=== PATIENT | female | born 1965 | race Caucasian/White ===

== ENCOUNTER 2016-09-12 12:21 | Emergency (ER) | payer OTHER ==
[~2016-09-12] VITALS: Wt 77.5 kg
[~2016-09-12 12:21] MED LIST: CETI10CA PO; CIPR500T4 PO; GLYB5TAB3 PO; HYDR-3498 PO; HYDR-762 PO; IBUP800T25 PO; METF1000 PO; METR500T PO; NAPR-260 PO; OMEP40CA6 PO; ONDA4TAB35 PO
--- NOTE | 2016-09-12 13:49 | ERD ---
ER Documentation Chief Complaint Date/Time DATE: 09/12/16 TIME: 13:47 Chief Complaint LEFT FACE/NOSE/ARM/HIP PAIN S/P FALL TODAY NO LOC HPI 51-year-old female comes in status post slip and fall at [facility] today at around 11:45 AM complaining of facial pain, right wrist pain, and left knee pain. Patient's pain is in the left side of her face in the cheek and the jaw, she states that she fell on the ground on this area. Pain is achy, moderate, worse when she moves her head. There was no loss of consciousness, vomiting. She also is here for dorsal wrist pain on the right side, she states that she may have to try to catch herself but is not sure. She also complains of bruising on the left knee and pain as well. ROS All systems reviewed and are negative except as per history of present illness. Medications Home Meds Active Scripts Ibuprofen* (Motrin*) 600 Mg Tab, 600 MG PO Q6, #30 TAB Prov:GIOVANNI SCHWAB PA-C 09/12/16 Cetirizine Hcl* (Zyrtec*) 10 Mg Capsule, 10 MG PO DAILY, #14 TAB.CHEW Prov:BRIANNE DU PA-C 01/17/16 Ondansetron Hcl* (Zofran* ODT) 4 mg -ODT Tab.disper, 4 MG PO Q6 Y for NAUSEA AND /OR VOMITING, #10 TAB Prov:MAGALY BLANCAS MD 09/15/15 Hydrocodone Bit-Acetaminophen* (Paulina*) 10-325 Mg Tablet, 1 TAB PO Q6 Y for PAIN , #7 TAB Prov:MAGALY BLANCAS MD 09/15/15 Metronidazole* (Flagyl*) 500 Mg Tablet, 500 MG PO TID for 10 Days, TAB Prov:MAGALY BLANCAS MD 09/15/15 Ciprofloxacin Hcl* (Ciprofloxacin Hcl*) 500 Mg Tablet, 500 MG PO BID for 10 Days , TAB Prov:MAGALY BLANCAS MD 09/15/15 Naproxen* (Naprosyn*) 500 Mg Tablet, 500 MG PO BID Y for PAIN AND/OR INFLAMMATION, #30 TAB Prov:JACKIE KOHLER 11/11/14 Hydrocodone Bit-Acetaminophen* (Paulina*) 5-325 Mg Tab, 1 TAB PO Q6 Y for PAIN, # 10 TAB Prov:JACKIE KOHLER 11/11/14 Reported Medications Ibuprofen* (Ibuprofen*) 800 Mg Tab, 800 MG PO Q6H Y for PAIN, TAB 01/19/14 Metformin Hcl* (Metformin Hcl*) 1,000 Mg Tablet, 1000 MG PO BID, TAB 01/19/14 Omeprazole* (Omeprazole*) 40 Mg Capsule.dr, 40 MG PO DAILY, CAP 01/19/14 Glyburide* (Glyburide*) 5 Mg Tablet, 10 MG PO BID, TAB 01/19/14 Allergies Allergies: Coded Allergies: No Known Drug Allergies (Verified Allergy, Mild, 11/10/14) PMhx/Soc History of Surgery: Yes (gallbladder removed, hysterectomy, x2) Anesthesia Reaction: No Hx Neurological Disorder: No Hx Respiratory Disorders: No Hx Cardiac Disorders: Yes (htn) Hx Psychiatric Problems: No Hx Miscellaneous Medical Probl: Yes (DM II) Hx Alcohol Use: No Hx Substance Use: No Hx Tobacco Use: No Physical Exam Vitals Vital Signs Date Time Temp Pulse Resp B/P Pulse Ox O2 Delivery O2 Flow Rate FiO2 09/12/16 12:31 98.3 71 20 155/73 100 Physical Exam General: Well-developed, well-nourished. The patient appears in no acute distress. HEENT: Head is normocephalic, scalp appears to be atraumatic. She is able to open and close her jaw fully. patient has soft tissue swelling on the right side, over the zygomatic arch, and jaw. Patient is able to open and close her eyes, she has extraocular movements intact. There is no hyphema or injection to the conjunctiva.. No scleral icterus. Pupils are equal, round, and reactive. Oral mucous membranes are moist. No pharyngeal erythema. Neck: Supple. Nontender. No midline tenderness or crepitus. Lungs: Clear to auscultation. Normal air movement. Heart: Regular rate and rhythm. S1 and S2 are normal. No murmurs, gallops, or rubs. Abdomen: Soft, nontender, nondistended. Bowel sounds are normoactive. Extremities: Dorsal wrist swelling on the right side, and there is no snuffbox tenderness, radial, ulnar, median nerve intact. Right medial anterior knee pain noted with ambulation, she is able to flex and extend the knee fully, there is ecchymosis. No joint laxity. Neurologic: Alert and oriented 3. No focal deficits. Skin: Normal turgor. No rash or lesions. Results 24 hrs Current Medications Medications (Trade) Dose Ordered Sig/Indira Route PRN Reason Start Time Stop Time Status Last Admin Dose Admin Acetaminophen/ Hydrocodone Bitart (Paulina (5/325)) 1 tab ONCE ONCE PO 09/12/16 14:00 09/12/16 14:01 DC 09/12/16 14:07 PROCEDURE: XR right wrist. CLINICAL INDICATION: Wrist pain TECHNIQUE: 4 views are available for review. COMPARISON: No prior studies are available for comparison. FINDINGS: The osseous structures are normal in mineralization, architecture and alignment. No fracture or osseous lesion is identified. The joints are unremarkable. No erosions are identified.The soft tissues are unremarkable. IMPRESSION: Unremarkable examination. RPTAT: HGDB .Luis Antonio Damico MD, MD Date Time Electronically viewed and signed by .Luis Antonio Damico MD, MD on 09/12/2016 15:09 .B/ CC: GIOVANNI SCHWAB PA-C PROCEDURE: XR left knee. CLINICAL INDICATION: Knee pain TECHNIQUE: 3 views are available for review. COMPARISON: None available FINDINGS: The osseous structures are normal in mineralization, architecture and alignment. No fractures are identified. No osseous lesions are identified. The joints are unremarkable. The soft tissues are unremarkable. IMPRESSION: Unremarkable examination RPTAT: HGDB .Luis Antonio Damico MD, MD Date Time Electronically viewed and signed by .Luis Antonio Damico MD, MD on 09/12/2016 15:10 .B/ CC: GIOVANNI SCHWAB PA-C PROCEDURE: CT Brain without contrast. CLINICAL INDICATION: Fall. Headache and facial trauma. TECHNIQUE: A multiplanar CT of the brain was performed on a CT scanner utilizing axial imaging from the skull base through the vertex without IV contrast. The CTDIvol is 44.58 mGy and the DLP is 720.23 mGycm. One or more of the following dose reduction techniques were utilized: Automated exposure control, adjustment of the mA and/or kV according to patient size, use of iterative reconstruction technique. COMPARISON: None FINDINGS: No evidence of intracranial hemorrhage or abnormal extra-axial fluid collection. The brain parenchyma is normal attenuation morphology with preservation of becerra white differentiation and age appropriate size of the ventricles and subarachnoid spaces. Physiologic left basal ganglia calcification. Atherosclerotic calcification of the cavernous internal carotid arteries.. The basal cisterns, posterior fossa contents, brainstem, craniocervical junction , orbits, pituitary axis, paranasal sinuses, mastoid air cells, and calvarium are unremarkable. IMPRESSION: 1. No intracranial hemorrhage or acute intracranial abnormality. RPTAT:AAJJ Lashon Don Physician Date Time Electronically viewed and signed by Physician Antelmo on 09/12/2016 14:04 WILIAN/ PROCEDURE: CT scan facial bones CLINICAL INDICATION: Trauma. Facial injury. Pain. TECHNIQUE: CT scan of the face was performed on the a high-resolution multidetector CT scanner with multiple contiguous axial images obtained through the face. Coronal and sagittal reformatted images were obtained from the axial source images. Exam CTDI = 29.59 mGy and the DLP = 659.21 mGy-cm. COMPARISON: None available. FINDINGS: No acute fracture or dislocation is seen. Mild left facial soft tissue swelling is noted. The orbital globes are unremarkable. Nasal septum is intact. Paranasal sinuses demonstrate left greater than right probable mucous retention cysts, otherwise mild scattered mucosal thickening mainly in ethmoid air cells. IMPRESSION: 1. Mild left facial soft tissue swelling. No acute facial fracture or dislocation. 2. Mild scattered paranasal sinus disease. RPTAT: HH .Samantha Goins MD, MD Date Time Electronically viewed and signed by .Samantha Goins MD, MD on 09/12/2016 14: 21 .N/ Procedures/MDM ED course: Patient was given Paulina to treat her pain. MDM: 51-year-old female comes into the status post slip and fall at [facility] today complaining of facial pain, wrist pain, left knee pain. CT scan of the face and head is negative, no evidence of intracranial hemorrhage, skull fracture, no facial fracture noted. X-rays of the wrist and knee are also normal. Patient likely presents with a facial contusion, right wrist sprain, left knee contusion Departure Diagnosis: Primary Impression: Fall Additional Impressions: Wrist sprain Facial contusion Condition: Good GIOVANNI SCHWAB PA-C September 12, 2016 13:49
[2016-09-12] MEDS ORDERED: HYDROCODONE/APAP (5/325) TAB PO ONE (14:00)
--- NOTE | 2016-09-12 14:04 | RADRPT ---
PROCEDURE: CT Brain without contrast. CLINICAL INDICATION: Fall. Headache and facial trauma. TECHNIQUE: A multiplanar CT of the brain was performed on a CT scanner utilizing axial imaging fro m the skull base through the vertex without IV contrast. The CTDIvol is 44.58 mGy and the DLP is 72 0.23 mGycm. One or more of the following dose reduction techniques were utilized: Automated exposu re control, adjustment of the mA and/or kV according to patient size, use of iterative reconstructio n technique. COMPARISON: None FINDINGS: No evidence of intracranial hemorrhage or abnormal extra-axial fluid collection. The brain parenchyma is normal attenuation morphology with preservation of ebcerra white differentiatio n and age appropriate size of the ventricles and subarachnoid spaces. Physiologic left basal ganglia calcification. Atherosclerotic calcification of the cavernous internal carotid arteries.. The basal cisterns, posterior fossa contents, brainstem, craniocervical junction, orbits, pituitary axis, paranasal sinuses, mastoid air cells, and calvarium are unremarkable. IMPRESSION: 1. No intracranial hemorrhage or acute intracranial abnormality. RPTAT:AAJJ Physician Antelmo Date Time Electronically viewed and signed by Physician Antelmo on 09/12/2016 14:04 WILIAN/
--- NOTE | 2016-09-12 14:21 | RADRPT ---
PROCEDURE: CT scan facial bones CLINICAL INDICATION: Trauma. Facial injury. Pain. TECHNIQUE: CT scan of the face was performed on the a high-resolution multidetector CT scanner wit h multiple contiguous axial images obtained through the face. Coronal and sagittal reformatted imag es were obtained from the axial source images. Exam CTDI = 29.59 mGy and the DLP = 659.21 mGy-cm. COMPARISON: None available. FINDINGS: No acute fracture or dislocation is seen. Mild left facial soft tissue swelling is noted. The orbit al globes are unremarkable. Nasal septum is intact. Paranasal sinuses demonstrate left greater than right probable mucous retention cysts, otherwise mild scattered mucosal thickening mainly in ethmoi d air cells. IMPRESSION: 1. Mild left facial soft tissue swelling. No acute facial fracture or dislocation. 2. Mild scattered paranasal sinus disease. RPTAT: HH .Samantha Goins MD, MD Date Time Electronically viewed and signed by .Samantha Goins MD, MD on 09/12/2016 14:21 .N/
--- NOTE | 2016-09-12 15:10 | RADRPT ---
PROCEDURE: XR left knee. CLINICAL INDICATION: Knee pain TECHNIQUE: 3 views are available for review. COMPARISON: None available FINDINGS: The osseous structures are normal in mineralization, architecture and alignment. No fractures are i dentified. No osseous lesions are identified. The joints are unremarkable. The soft tissues are u nremarkable. IMPRESSION: Unremarkable examination RPTAT: HGDB .Luis Antonio Damico MD, MD Date Time Electronically viewed and signed by .Luis Antonio Damico MD, on 09/12/2016 15:10 .B/
--- NOTE | 2016-09-12 15:10 | RADRPT ---
PROCEDURE: XR right wrist. CLINICAL INDICATION: Wrist pain TECHNIQUE: 4 views are available for review. COMPARISON: No prior studies are available for comparison. FINDINGS: The osseous structures are normal in mineralization, architecture and alignment. No fracture or oss eous lesion is identified. The joints are unremarkable. No erosions are identified.The soft tissues are unremarkable. IMPRESSION: Unremarkable examination. RPTAT: HGDB .Luis Antonio Damico MD, MD Date Time Electronically viewed and signed by .Luis Antonio Damico MD, on 09/12/2016 15:09 .B/
[2016-09-12] MEDS ORDERED: IBUP-1542 PO (15:18)
== END 2016-09-12 15:38 | disposition home or self-care (01) ==
LOC: FTE 12:21
DX: S63.501A Unspecified sprain of right wrist, initial encounter (principal); S00.83XA Contusion of other part of head, initial encounter; I10 Essential (primary) hypertension; E11.9 Type 2 diabetes mellitus without complications; W01.0XXA Fall on same level from slipping, tripping and stumbling without subsequent striking against object, initial encounter; Y92.9 Unspecified place or not applicable; Z79.84 Long term (current) use of oral hypoglycemic drugs
CPT/HCPCS: 70450; 70486; 73110; 73562; Z7610

== ENCOUNTER 2017-05-08 05:53 | Emergency (ER) | END 2017-05-08 12:55 | disposition home or self-care (01) ==

== ENCOUNTER 2018-10-23 19:50 | Emergency (ER) | payer OTHER ==
[~2018-10-23] VITALS: Ht 157.5 cm; Wt 77.2 kg
[~2018-10-23 19:50] MED LIST changes: +ASPI-817 PO; +ATOR20TA38 PO; -CETI10CA PO; -CIPR500T4 PO; +ENAL10TA PO; +FER325 PO; +FIORICET PO; -HYDR-3498 PO; -HYDR-762 PO; -IBUP800T25 PO; -METF1000 PO; -METR500T PO; -NAPR-260 PO; -OMEP40CA6 PO; -ONDA4TAB35 PO; +PANT40TA4 PO; +SITA100T11 PO
[2018-10-23 20:00] VITALS: Ht 157.5 cm; Wt 77.2 kg
[2018-10-23] MEDS ORDERED: KETOROLAC 60 MG INJ IM STA (22:21)
[2018-10-23] MEDS ORDERED: CEPH-443 PO (23:33)
[2018-10-23] MEDS ORDERED: IBUP-1542 PO (23:33)
[2018-10-23] MEDS ORDERED: PHEN-538 PO (23:38)
[2018-10-23 23:57] VITALS: BP 120/72; PULSE 70; RESP 16
[2018-10-24] MEDS ORDERED: CEPHALEXIN 500 MG CAP PO ONE
[2018-10-24] MEDS ORDERED: PHENAZOPYRIDINE 100 MG TAB PO ONE
--- NOTE | 2018-11-07 04:38 | ERD ---
ER Documentation Chief Complaint Chief Complaint LANTIGUA AND BODY ACHES X 2 WEEKS. HPI History of Present Illness: 53-year-old female with history of diabetes, hypertension, hyperlipidemia coming in today with complaint of headache and body aches is been present for 2 weeks. Patient denies flulike symptoms. Denies genitourinary infectious symptoms. Denies abdominal infectious symptoms. Denies HEENT infectious symptoms At home pharmacological/nonpharmacological treatment for symptoms: Denies Denies social concerns; Denies recent foreign travel ROS All systems reviewed and are negative except as per history of present illness. Medications Home Meds Active Scripts Phenazopyridine Hcl* (Pyridium*) 200 Mg Tab, 200 MG PO TID PRN for URINARY PAIN, #5 TAB Prov:MICA MORE NP 10/23/18 Ibuprofen* (Motrin*) 600 Mg Tab, 600 MG PO Q6H PRN for PAIN AND OR ELEVATED TEMP, #30 TAB Prov:MICA MORE V TEJAS 10/23/18 Cephalexin* (Keflex*) 500 Mg Capsule, 500 MG PO BID for URINE INFECTION for 7 Days, CAP Prov:MICA MORE NP 10/23/18 Acetamin/Butalbital/Caffeine* (Fioricet*) [id number] Tab, 1 TAB PO Q6H PRN for PAIN, #30 TAB Prov:NELLIE CAMPOVERDE MD 05/08/17 Reported Medications Ferrous Sulfate* (Ferrous Sulfate*) 325 Mg Tabec, 325 MG PO DAILY, TAB 05/08/17 Aspirin* (Aspirin* EC) 81 Mg Tablet.dr, 81 MG PO DAILY, TAB 05/08/17 Atorvastatin Calcium* (Atorvastatin Calcium*) 20 Mg Tablet, 20 MG PO QHS, #30 TAB 05/08/17 Sitagliptin* (Januvia*) 100 Mg Tablet, 100 MG PO DAILY, #30 TAB 05/08/17 Enalapril Maleate* (Enalapril Maleate*) 10 Mg Tablet, 10 MG PO DAILY, TAB 05/08/17 Pantoprazole* (Pantoprazole*) 40 Mg Tablet.dr, 40 MG PO AC BREAKFAST, TAB 05/08/17 Glyburide* (Glyburide*) 5 Mg Tablet, 10 MG PO BID, #30 TAB 05/08/17 Allergies Allergies: Coded Allergies: No Known Drug Allergies (Verified Allergy, Mild, 05/08/17) PMhx/Soc History of Surgery: Yes ( X 2, GALL BLADDER, HYSTERECTOMY ) Anesthesia Reaction: No Hx Neurological Disorder: No Hx Respiratory Disorders: No Hx Cardiac Disorders: Yes (htn, CHOLESTEROL ) Hx Psychiatric Problems: No Hx Miscellaneous Medical Probl: Yes (dm) Hx Alcohol Use: No Hx Substance Use: No Hx Tobacco Use: No Smoking Status: Never smoker FmHx Family History: No coronary disease Physical Exam Physical Exam Const: No acute distress, afebrile Head: Atraumatic Eyes: Normal Conjunctiva ENT: Normal External Ears, Nose and Mouth. No erythema, bulging, perforation of the tympanic membranes. No mastoiditis. Neck: Full range of motion. No meningismus. Resp: Clear to auscultation bilaterally Cardio: Regular rate and rhythm, no murmurs Abd: Soft, non tender, non distended. No guarding, no masses, no rigidity Skin: No petechiae or rashes Back: No midline or flank tenderness Ext: No cyanosis, or edema Neur: Awake and alert x3, speaking in clear sentences, no focal deficits or facial asymmetry Psych: Normal Mood and Affect Results 24 hrs Laboratory Tests Test 10/23/18 22:21 Urine Color STRAW Urine Clarity CLEAR Urine pH 5.0 Urine Specific [place] 1.005 Urine Ketones NEGATIVE mg/dL Urine Nitrite NEGATIVE mg/dL Urine Bilirubin NEGATIVE mg/dL Urine Urobilinogen NEGATIVE mg/dL Urine Leukocyte Esterase 2+ Melissa/ul Urine Microscopic RBC 1 /HPF Urine Microscopic WBC 6 /HPF Urine Squamous Epithelial Cells FEW /HPF Urine Hemoglobin NEGATIVE mg/dL Urine Glucose NEGATIVE mg/dL Urine Total Protein NEGATIVE mg/dl Current Medications Medications Dose Sig/Indira Start Time Status Last (Trade) Ordered Route PRN Stop Time Admin Dose Reason Admin Ketorolac 60 mg ONCE STAT 10/23/18 DC 10/23/18 Tromethamine IM 22:21 10/23/18 22:27 (Toradol) 22:24 Cephalexin 500 mg ONCE ONCE 10/24/18 DC 10/23/18 (Keflex) PO 00:00 10/24/18 23:50 00:01 200 mg ONCE ONCE 10/24/18 DC 10/23/18 Phenazopyridi PO 00:00 10/24/18 23:50 ne HCl 00:01 (Pyridium) Procedures/MDM ED COURSE: ED course includes a thorough examination and history. The patient was stable throughout ED course. I kept the patient and/or family informed of laboratory and diagnostic imaging results throughout the ED course. LABS: Urinalysis positive for 2+ leukocyte esterase, 6 WBCs Wet mount negative for clue cells, trichomonas, yeast, infectious process MEDICATIONS GIVEN IN ER: Ketorolac Patient tolerated medication well with no adverse reactions. Patient reported improvement in pain. PROCEDURES: None. MEDICAL DECISION MAKING: Low suspicion for life-threatening medical emergency. Low suspicion for neurological emergency. Otherwise healthy patient presenting with constellation of symptoms likely representing viral syndrome/urinary tract infection as characterized by history, physical exam findings, lab findings. Patient reassessment @ 2333: Results discussed. Patient hemodynamically stable. No respiratory distress, otherwise relatively well appearing and nontoxic. Disposition given. Patient educated on diagnoses, prescriptions, follow-up care, return precautions. Strict return precautions given for worsening condition; questions answered discharge. Patient verbalizes understanding of discharge instructions. PRESCRIPTIONS FOR HOME: Ibuprofen, Pyridium, Keflex DISPOSITION: DISCHARGE At this time, patient is stable for discharge and outpatient management. I have instructed the patient to follow-up with his/her primary care physician in 1-2 days. I have discussed with the patient the possibility of needing to see a specialist for further workup and imaging studies if symptoms persist. I have instructed the patient to promptly return to the ER for any new or worsening symptoms including increased pain, fever, nausea, vomiting, weakness or LOC. The patient and/or family expressed understanding of and agreement with this plan. All questions were answered. Home care instructions were provided. DISCLAIMER: Inadvertent spelling and grammatical errors are likely due to EHR/dictation software use and do not reflect on the overall quality of patient care. Also, please note that the electronic time recorded on this note does not necessarily reflect the actual time of the patient encounter. Departure Diagnosis: Primary Impression: UTI (urinary tract infection) Additional Impression: Viral syndrome Condition: Stable Patient Instructions: Urinary Tract Infections in Women Referrals: COMMUNITY CLINICS YOU HAVE RECEIVED A MEDICAL SCREENING EXAM AND THE RESULTS INDICATE THAT YOU DO NOT HAVE A CONDITION THAT REQUIRES URGENT TREATMENT IN THE EMERGENCY DEPARTMENT. FURTHER EVALUATION AND TREATMENT OF YOUR CONDITION CAN WAIT UNTIL YOU ARE SEEN IN YOUR DOCTORS OFFICE WITHIN THE NEXT 1-2 DAYS. IT IS YOUR RESPONSIBILITY TO MAKE AN APPOINTMENT FOR FOLOW-UP CARE. IF YOU HAVE A PRIMARY DOCTOR --you should call your primary doctor and schedule an appointment IF YOU DO NOT HAVE A PRIMARY DOCTOR YOU CAN CALL OUR PHYSICIAN REFERRAL HOTLINE AT IF YOU CAN NOT AFFORD TO SEE A PHYSICIAN YOU CAN CHOSE FROM THE FOLLOWING [facility] [address] [facility] [address] [facility] [address] [facility] [address] [facility] [address] [facility] [address] [facility]. [facility] YOU HAVE RECEIVED A MEDICAL SCREENING EXAM AND THE RESULTS INDICATE THAT YOU DO NOT HAVE A CONDITION THAT REQUIRES URGENT TREATMENT IN THE EMERGENCY DEPARTMENT. FURTHER EVALUATION AND TREATMENT OF YOUR CONDITION CAN WAIT UNTIL YOU ARE SEEN IN YOUR DOCTORS OFFICE WITHIN THE NEXT 1-2 DAYS. IT IS YOUR RESPONSIBILITY TO MAKE AN APPOINTMENT FOR FOLOW-UP CARE. IF YOU HAVE A PRIMARY DOCTOR --you should call your primary doctor and schedule and appointment IF YOU DO NOT HAVE A PRIMARY DOCTOR YOU CAN CALL OUR PHYSICIAN REFERRAL HOTLINE AT . IF YOU CAN NOT AFFORD TO SEE A PHYSICIAN YOU CAN CHOSE FROM THE FOLLOWING [facility] INSTIT[facility]IONS: [facility] [address] [place] [address] [facility] [address] [place] [address] [facility] [address] [place] [address] Additional Instructions: Google Translate utilizado para la traduccin de las siguientes lneas, por favor, disculpe los errores. Muchas jeff por permitirnos participar en cesar cuidado. Cesar jacob y seguridad es nuestra principal prioridad en [facility]. Es importante leer todas las instrucciones de shweta y la educacin que se proporcionan en cesar paquete de shweta. Llame a cesar mdico de atencin primaria MAANA para soham mark carson los prximos 2 a 4 camargo y lleve toda la informacin y los medicamentos recetados. Llene las recetas y siga exactamente las instrucciones de la etiqueta. -Cefalexina es un antibitico; tome althea medicamento todos los camargo hilario se indica en cesar receta. Debe completar todo el curso de tratamiento que figura en cesar receta. [place] es muy importante porque se necesitan varios camargo para eliminar las bacterias que causan la infeccin. -El ibuprofeno es un medicamento que ayuda con el dolor / inflamacin. En la dosis de 600 a 800 mg, esto ayudar con la inflamacin / hinchazn. [place] althea me dicamento segn las indicaciones. -Fenazopyridine / Pyridium es un medicamento que ayudar a disminuir el dolor urinario. Althea medicamento rodolfo que cesar orina adquiera un color naranja. Althea es un efecto secundario normal de la medicacin. Si los sntomas empeoran y cesar proveedor no est disponible, regrese inmediatamente al Departamento de Emergencias. ----- Google Translate used for translation of following lines, please excuse errors. Thank you very much for allowing us to participate in your care. Your health and safety is our top priority at [facility]. It is important to read all discharge instructions and education provided in your discharge packet. Call your primary care doctor TOMORROW for an appointment during the next 2-4 days and bring all the information and medications prescribed. Have prescriptions filled and follow precisely the directions on the label. -Cephalexin is an antibiotic; take this medication every day as listed on your prescription. You must complete the entire course of treatment that is listed on your prescription this is very important because it takes a certain number of days to kill the bacteria that is causing the infection. -Ibuprofen is a medication that will help with pain/inflammation. At the dosage of 600 to 800 mg, this will help with inflammation/swelling. Take this medication as prescribed. -Phenazopyridine/Pyridium is a medication that will help decrease urinary pain. This medication will make your urine turn orange color. This is a normal side effect of the medication. If the symptoms get worse and your provider is unavailable, return to the Emergency Department immediately. MICA MORE NP Nov 07, 2018 04:38
[2018-11-08] MEDS ORDERED: CEPH-443 PO
[2018-11-08] MEDS ORDERED: FAMO-96 PO
[2018-11-08] MEDS ORDERED: IBUP-1542 PO
== END 2018-10-23 23:57 | disposition home or self-care (01) ==
LOC: EDBD → FTE 19:50
DX: N39.0 Urinary tract infection, site not specified (principal); B34.9 Viral infection, unspecified; E11.9 Type 2 diabetes mellitus without complications; Z79.82 Long term (current) use of aspirin
CPT/HCPCS: 81001; 87210; J1885; Z7610; 96372

== ENCOUNTER 2018-11-07 20:18 | Emergency (ER) | payer OTHER ==
[~2018-11-07] VITALS: Ht 157.5 cm; Wt 76.9 kg
[~2018-11-07 20:18] MED LIST changes: +CEPH-443 PO; +FAMO-96 PO; +IBUP-1542 PO; +PHEN-538 PO
[2018-11-07 20:26] VITALS: Ht 157.5 cm; Wt 76.9 kg
[2018-11-07] MEDS ORDERED: ONDANSETRON (ODT) 4 MG TAB ODT STA (21:34)
[2018-11-07] MEDS ORDERED: KETOROLAC 30 MG INJ IM STA (21:36)
[2018-11-07] MEDS ORDERED: BELLADONNA/PHENOBARBITAL TAB PO ONE (22:00)
[2018-11-07] MEDS ORDERED: LIDOCAINE/MYLANTA 40 ML BTL PO ONE (22:00)
[2018-11-08 00:37] VITALS: BP 147/67; PULSE 61; RESP 17
== END 2018-11-08 00:37 | disposition home or self-care (01) ==
LOC: EDBD 20:18 → FTE 20:18
DX: N39.0 Urinary tract infection, site not specified (principal); I10 Essential (primary) hypertension; E11.9 Type 2 diabetes mellitus without complications; Z79.82 Long term (current) use of aspirin; Z79.84 Long term (current) use of oral hypoglycemic drugs
CPT/HCPCS: 76705; 80053; 81001; 83690; 85025; J1885; Z7610; 36415; 81003; 96372